=== PATIENT | female | born 1980 | race Caucasian/White ===

== ENCOUNTER → 2020-11-20 | Outpatient (CLI) | payer OTHER ==
--- NOTE | 2020-11-20 16:27 | XR ---
Left wrist HISTORY: S 66.119, trauma and pain 4 views of the left wrist Bone mineralization, joint spaces and alignment are maintained. IMPRESSION: No fracture or dislocation.
== END | disposition home or self-care (01) ==
LOC: RADXRMAIN 14:25
PROVIDERS: ATTEND Emergency Medicine
DX: M25.532 Pain in left wrist (principal)